=== PATIENT | male | born 1990 | race Native Hawaiian/Other Pacific Islander ===

== ENCOUNTER 2016-11-06 03:14 | Emergency (ER) | payer OTHER ==
[~2016-11-06] VITALS: Ht 185.4 cm; Wt 72.6 kg
[~2016-11-06 03:14] MED LIST: ALBU90AE13 INH
[2016-11-06 03:28] LABS: PLATELET COUNT 280 K/uL (142-355)
[2016-11-06 04:27] VITALS: BP 140/78; TEMP 98.7
== END 2016-11-06 04:27 | disposition home or self-care (01) ==
LOC: ED 03:14
PROVIDERS: Emergency Medicine
DX: K91.841 Postprocedural hemorrhage of a digestive system organ or structure following other procedure (principal)
CPT/HCPCS: 85027; 99283

== ENCOUNTER 2017-06-10 12:47 | Outpatient (CLI) | payer OTHER ==
[2017-06-10 14:00] LABS: PLATELET COUNT 282 K/uL (142-355)
== END 2017-06-10 13:50 | disposition home or self-care (01) ==
LOC: LABW 12:47
PROVIDERS: Internal Medicine
DX: K29.60 Other gastritis without bleeding (principal)
CPT/HCPCS: 36415; 85027; 86677

== ENCOUNTER 2017-09-11 12:44 | Emergency (ER) | payer OTHER ==
[~2017-09-11] VITALS: Ht 185.4 cm; Wt 81.6 kg
[2017-09-11 16:24] LABS: PLATELET COUNT 239 K/uL (142-355)
[2017-09-11 16:32] LABS: SODIUM 136 mmol/L (136-145)
[2017-09-11 19:00] VITALS: BP 138/81; TEMP 98.1
== END 2017-09-11 19:03 | disposition home or self-care (01) ==
LOC: ED 12:44
PROVIDERS: Emergency Medicine
DX: R00.2 Palpitations (principal)
CPT/HCPCS: 36415; 80053; 82550; 83735; 84484; 85027; 93005; 99283

== ENCOUNTER 2018-06-23 21:58 | Inpatient (IN) | payer OTHER ==
[~2018-06-23] VITALS: Ht 185.4 cm; Wt 92.6 kg
[2018-06-23 22:00] VITALS: BP 176/95; TEMP 97.7
[2018-06-23 22:50] LABS: PLATELET COUNT 288 K/uL (142-355)
[2018-06-23 22:56] LABS: POTASSIUM 3.7 mmol/L (3.6-5.2)
[2018-06-24 01:14] VITALS: BP 143/87; TEMP 98.3; Ht 185.4 cm; Wt 92.6 kg
[2018-06-24 04:00] VITALS: BP 122/77; TEMP 98.7
[2018-06-24 08:00] VITALS: BP 137/82; TEMP 98.1
[2018-06-24 10:50] LABS: PARTIAL THROMBOPLASTIN TIME 29.3 SECONDS (24.5-33.6)
[2018-06-24 12:00] VITALS: BP 137/80; TEMP 97.8
[2018-06-24 16:00] VITALS: BP 131/84; TEMP 98.9
[2018-06-24 20:05] VITALS: BP 138/80; TEMP 98.7; TEMP 99.9
[2018-06-25] VITALS: BP 119/67; TEMP 98.6
[2018-06-25 04:00] VITALS: BP 119/70; TEMP 97.3
[2018-06-25 08:19] VITALS: BP 113/68; TEMP 97.9
== END 2018-06-25 11:40 | disposition home or self-care (01) | DRG 93 ==
LOC: ED 21:58 → MED/SURG 06-24 00:05
PROVIDERS: Internal Medicine; ADMIT Emergency Medicine
DX: R20.0 Anesthesia of skin (principal); J32.8 Other chronic sinusitis; K21.9 Gastro-esophageal reflux disease without esophagitis; R00.2 Palpitations
CPT/HCPCS: 36415; 80053; 80307; 82550; 83735; 84439; 84443; 84484; 85027; 85379; 85610; 85730; 93005; 96372; 99284; J1650; J2930

== ENCOUNTER 2018-07-23 07:12 | Emergency (ER) | payer OTHER ==
[~2018-07-23] VITALS: Ht 185.4 cm; Wt 92.5 kg
[2018-07-23 07:25] VITALS: TEMP 97.3
[2018-07-23 08:15] LABS: PLATELET COUNT 278 K/uL (142-355)
[2018-07-23 08:20] LABS: POTASSIUM 3.6 mmol/L (3.6-5.2); SODIUM 137 mmol/L (136-145)
[2018-07-23 09:10] VITALS: BP 124/78
== END 2018-07-23 09:05 | disposition home or self-care (01) ==
LOC: ED 07:12
PROVIDERS: Internal Medicine
DX: R07.89 Other chest pain (principal); R10.13 Epigastric pain; R00.1 Bradycardia, unspecified
CPT/HCPCS: 80053; 82550; 84484; 85027; 85379; 93005; 99283

== ENCOUNTER 2018-12-15 23:50 | Emergency (ER) | payer OTHER ==
[~2018-12-15] VITALS: Ht 185.4 cm; Wt 81.6 kg
[2018-12-16 00:02] VITALS: TEMP 98.4
[2018-12-16] MEDS ORDERED: METO50TA27 PO (00:03)
[2018-12-16] MEDS ORDERED: PANTOPRAZOLE 40MG TA PO (00:04)
[2018-12-16] MEDS ORDERED: ASPI-93 PO (00:04)
[2018-12-16 00:27] LABS: PLATELET COUNT 285 K/uL (142-355)
[2018-12-16 00:38] LABS: POTASSIUM 4.1 mmol/L (3.6-5.2); SODIUM 138 mmol/L (136-145)
[2018-12-16 01:34] VITALS: BP 138/85
== END 2018-12-16 01:34 | disposition home or self-care (01) ==
LOC: ED 23:50
PROVIDERS: Emergency Medicine
DX: R00.2 Palpitations (principal)
CPT/HCPCS: 36415; 80053; 82550; 82553; 84484; 85027; 93005; 99283

== ENCOUNTER 2019-04-28 03:24 | Observation (INO) | payer OTHER ==
[2019-04-28] VITALS (9 sets, daily range): BP systolic 117–155; BP diastolic 67–87; TEMP 97.5–98.2; Ht 185.4 cm; Wt 84.1 kg
[~2019-04-28] VITALS: Ht 185.4 cm; Wt 84.1 kg
[~2019-04-28 03:24] MED LIST changes: +ASPI-93 PO; +METO50TA27 PO; +PANTOPRAZOLE 40MG TA PO
[2019-04-28 03:50] LABS: PLATELET COUNT 291 K/uL (142-355)
[2019-04-28 04:06] LABS: POTASSIUM 3.7 mmol/L (3.6-5.2); SODIUM 132 mmol/L (136-145)
[2019-04-28 04:27] LABS: PARTIAL THROMBOPLASTIN TIME 25.8 SECONDS (24.5-33.6)
--- NOTE | 2019-04-28 06:02 | NUR ---
04/28/19 0525: PT ARRIVED BY WHEELCHAIR FROM ER. PT IS ALERT, ORIENTED X4. NO COMPLAINTS AT THIS TIME.
--- NOTE | 2019-04-28 07:30 | NUR ---
UPON ASSESSMENT OF PATIENT, PT C/O CHEST PAIN TO LEFT SIDE OF HEART, SAYING IT FEELS LIKE SOMEONE IS SQUEEZING, PRS=3, PT WEARING O2@2L NC, LUNGS CLEAR TO AUSULTATION, HEART RATE WNL, REGULAR HEART RHYTHM, NO OTHER C/O AT THIS TIME. @0800 DR MARTINEZ IN ROOM, TALKED TO PATIENT ABOUT TRANSFERRING TO [facility] UNDER THE CARE OF DR CALVIN.
--- NOTE | 2019-04-28 14:55 | NUR ---
PT DISCHARGED TO [facility] IN [place], PT TAKEN VIA STRETCHER BY EMS TRANSPORT, 18G IV TO RT AC SALINE LOCKED FOR TRANSPORT, O2@2L NC, NITROPASTE 1" PLACED ON LEFT CHEST WALL BEFORE LEAVING, PACKET OF INFORMATION SENT WITH PATIENT/EMS, REPORT CALLED TO MARVA VAZQUEZ RN AT [facility] @[address] MARTINEZ TO INFORM OF PT TRANSFER TIME @ 2190
== END 2019-04-28 14:55 ==
LOC: ED 03:24 → MED/SURG 04:50
PROVIDERS: Hospitalist; ADMIT Internal Medicine
DX: R07.89 Other chest pain (principal); R06.02 Shortness of breath; R11.0 Nausea; Z86.73 Personal history of transient ischemic attack (TIA), and cerebral infarction without residual deficits
CPT/HCPCS: 36415; 80053; 82550; 83880; 84484; 85027; 85379; 85610; 85730; 93005; 96374; 96375; 99220; 99284; G0378; J1650; J1885; J2405

== ENCOUNTER 2019-09-15 13:24 | Emergency (ER) | payer OTHER ==
[~2019-09-15] VITALS: Ht 185.4 cm; Wt 83.9 kg
[2019-09-15 14:05] VITALS: TEMP 97.9
[2019-09-15 17:08] VITALS: BP 136/82
== END 2019-09-15 17:09 | disposition home or self-care (01) ==
LOC: ED 13:24
DX: S00.11XA Contusion of right eyelid and periocular area, initial encounter (principal); Y04.0XXA Assault by unarmed brawl or fight, initial encounter; Y93.89 Activity, other specified; Y92.89 Other specified places as the place of occurrence of the external cause; H11.31 Conjunctival hemorrhage, right eye
CPT/HCPCS: 96372; 99283; J1885